=== PATIENT | male | born 1960 ===

== ENCOUNTER 2018-12-28 14:41 | Emergency (ER) | payer OTHER ==
[~2018-12-28] VITALS: Ht 182.9 cm; Wt 97.1 kg
[2018-12-28] MEDS ORDERED: Naprosyn500 MG PO (15:21)
[2018-12-28] MEDS ORDERED: GLIP5ER (15:25)
[2018-12-28] MEDS ORDERED: METF500 (15:25)
== END 2018-12-28 15:28 | disposition home or self-care (01) ==
LOC: ER 14:41
DX: M19.042 Primary osteoarthritis, left hand (principal); Z79.899 Other long term (current) drug therapy; Z79.84 Long term (current) use of oral hypoglycemic drugs; E11.9 Type 2 diabetes mellitus without complications
CPT/HCPCS: 99283

== ENCOUNTER 2019-04-02 14:42 | Emergency (ER) | payer OTHER ==
[~2019-04-02] VITALS: Ht 182.9 cm; Wt 99.8 kg
[~2019-04-02 14:42] MED LIST: GLIP5ER; METF500; Naprosyn500 MG PO
[2019-04-02] MEDS ORDERED: Flonase 0.05% N16 GM (15:06)
[2019-04-02] MEDS ORDERED: Mucinex1200 MG PO (15:06)
[2019-04-02] MEDS ORDERED: IBUP800 PO (15:28)
== END 2019-04-02 15:28 | disposition home or self-care (01) ==
LOC: ER 14:42
DX: H92.02 Otalgia, left ear (principal); Z88.0 Allergy status to penicillin
CPT/HCPCS: 99282